=== PATIENT | female | born 1955 | race Hispanic/Latino ===

== ENCOUNTER → 2024-01-12 | Outpatient (CLI) | payer OTHER | END | disposition home or self-care (01) | LOC: RAH 09:03 | PROVIDERS: ATTEND Family Medicine | DX: Z12.31 Encounter for screening mammogram for malignant neoplasm of breast (principal); R92.333 Mammographic heterogeneous density, bilateral breasts; R92.1 Mammographic calcification found on diagnostic imaging of breast | CPT/HCPCS: 77067 ==

== ENCOUNTER → 2024-12-17 | Outpatient (CLI) | payer OTHER ==
--- NOTE | 2024-12-18 09:56 | HMCIMG ---
Exam Type: MAMMO DX BILATERAL, US BREAST BILATERAL Clinical Information: MASTODYNIA/HX OF FIBROGLANDULAR DENSITY Comparison: None TECHNIQUE: Mammogram was performed with CC and MLO and ML projections. CAD was performed. CAD shows no worrisome regions. FINDINGS: The breasts are extremely dense, which lowers the sensitivity of mammography. Bilateral upper outer quadrant benign-appearing calcifications are seen. Bilateral breast ultrasound was performed and demonstrates hypoechoic nodule containing the benign-appearing macrocalcification of the right breast at the 11:00 position measuring 9 x 9 x 5 mm. There is a simple cyst of the right breast 7:00 position measuring 4 mm and there are bilateral benign-appearing axillary lymph nodes. No other nodules are seen either side and there are no worrisome lesions on ultrasound. No dominant mass or suspicious microcalcification identified. There is no nipple retraction or skin thickening. Benign-appearing calcifications are seen. IMPRESSION: 1. No mammographic or sonographic signs of malignancy.. 2. Routine follow-up recommended. BI-RADS: CATEGORY 2: BENIGN FINDINGS Note: A negative x-ray should not delay biopsy if a dominant or clinically suspicious mass is present, since 8-10% of cancers are not identified by mammography. Dense breasts, particularly, may obscure an underlying neoplasm.
== END | disposition home or self-care (01) ==
LOC: RAH 09:29
PROVIDERS: ATTEND Internal Medicine
DX: D24.1 Benign neoplasm of right breast (principal); D24.2 Benign neoplasm of left breast; N60.01 Solitary cyst of right breast; N63.11 Unspecified lump in the right breast, upper outer quadrant; R92.323 Mammographic fibroglandular density, bilateral breasts; R92.343 Mammographic extreme density, bilateral breasts; R92.1 Mammographic calcification found on diagnostic imaging of breast; N64.4 Mastodynia
CPT/HCPCS: 77066